=== PATIENT | female | born 1980 | race African-American/Black ===

== ENCOUNTER 2020-06-10 10:52 | Emergency (ER) | payer OTHER ==
[2020-06-10 18:40] LABS: BILIRUBIN TOTAL 0.26 mg/dL (0.20-1.00); CARBON DIOXIDE 27.8 mmol/L (21-32); CHLORIDE SERUM 102 mmol/L (98-107); CREATININE SERUM 0.6 mg/dL (0.6-1.0); GFR1 > 60 mL/min; GLUCOSE SERUM 90 mg/dL (74-106); SODIUM SERUM 137 mmol/L (136-145); TOTAL PROTEIN, SERUM 7.9 g/dL (6.4-8.2)
[2020-06-10 18:41] LABS: ALKALINE PHOSPHATASE 84 U/L (46-116); ALT/SGPT 11 U/L (14-59); AST/SGOT 17 U/L (15-37)
[2020-06-11 01:17] LABS: AMPHETAMINE QUAL UR NONE DETECTED (See below)
[2020-06-11 11:48] VITALS: BP 110/65
[2020-06-17 14:28] LABS: RED CELL DISTRIBUTION WIDTH 37.3 % (11.5-14.5)
[2020-06-17 14:29] LABS: PLATELET COUNT 604 x10^3mcL (130-400)
[2020-06-17 14:33] LABS: BAND NEUTROPHIL 0 % (0-10); MONOCYTE 3 % (0-7)
[2020-06-17 14:34] LABS: SEGMENTED NEUTROPHILS 80 % (37-75); rbc morphology (normal/abnorm) ABNORMAL (NORMAL)
[2020-06-17 14:35] LABS: PLATELET MORPHOLOGY PLATELETS INCREASED; schistocyte (helmet cell) 1+
[2020-06-17 14:36] LABS: target cell (codocyte) 1+
== END 2020-06-11 09:00 | disposition short-term general hospital (02) ==
LOC: ED 10:52
DX: R45.851 Suicidal ideations (principal); F32.9 Major depressive disorder, single episode, unspecified; F20.9 Schizophrenia, unspecified; Z20.828 Contact with and (suspected) exposure to other viral communicable diseases
CPT/HCPCS: G0480; U0003-CS

== ENCOUNTER 2020-08-26 18:55 | Emergency (ER) | payer OTHER ==
[~2020-08-26] VITALS: Ht 180.3 cm; Wt 124.3 kg
[2020-08-26 19:38] VITALS: BP 125/75; Ht 180.3 cm; Wt 124.3 kg
[2020-08-26 20:37] LABS: BASOPHIL % 0.7 % (0.2-1.3); PLATELET COUNT 184 x10^3mcL (179-408)
[2020-08-26 20:54] LABS: CALCIUM 8.3 mg/dL (8.5-10.1); CARBON DIOXIDE 25.5 mmol/L (21-32); CHLORIDE SERUM 106 mmol/L (98-107); CREATININE SERUM 0.8 mg/dL (0.6-1.0); GFR1 > 60 mL/min; GLUCOSE SERUM 122 mg/dL (74-106); POTASSIUM SERUM 3.8 mmol/L (3.5-5.1); SODIUM SERUM 141 mmol/L (136-145)
[2020-08-26 20:58] LABS: ALKALINE PHOSPHATASE 80 U/L (46-116); ALT/SGPT 12 U/L (14-59); AST/SGOT 9 U/L (15-37); BILIRUBIN TOTAL 0.2 mg/dL (0.20-1.00); CHOLESTEROL 149 mg/dL (<200); HDL CHOLESTEROL 48 mg/dL (40-60); TOTAL PROTEIN, SERUM 7.3 g/dL (6.4-8.2)
[2020-08-26 21:18] LABS: rbc morphology (normal/abnorm) ABNORMAL (NORMAL)
[2020-08-26 21:19] LABS: ovalocyte/elliptocyte 1+
== END 2020-08-27 10:26 | disposition left against medical advice (07) ==
LOC: ED 18:55
PROVIDERS: Emergency Medicine
DX: D64.9 Anemia, unspecified (principal); R55 Syncope and collapse; M32.9 Systemic lupus erythematosus, unspecified
CPT/HCPCS: P9016